=== PATIENT | female | born 1980 | race Caucasian/White ===

== ENCOUNTER 2018-01-29 09:19 | Emergency (ER) | payer OTHER ==
[2018-01-29 09:30] VITALS: BP 119/69
--- NOTE | 2018-01-29 09:39 | EDPHY ---
H & P Time Seen by Provider: 01/29/18 09:35 HPI/ROS: CHIEF COMPLAINT: Left middle digit injury HISTORY OF PRESENT ILLNESS: 37-year-old [id number] female states that 2 days ago when she was playing rugby wound her left middle digit was caught in another player's jersey when she was tackling and felt immediate pain to the PIP joint as noted deformity. Pain with range of motion and palpation. Positive ecchymosis. PRIMARY CARE PROVIDER: REVIEW OF SYSTEMS: A ten point review of systems was performed and is negative with the exception of the items mentioned in the HPI PHYSICAL EXAM (Prior to examination, patient consented to physical exam, hands were washed and my usual and customary physical exam procedures followed) 1) GENERAL: Well-developed, well-nourished, alert and oriented. Appears to be in no acute distress. 2) HEAD: Normocephalic 3) HEENT: Pupils equal, round, reactive to light bilaterally. 4) LUNGS: Breathing comfortably. 5) MUSCULOSKELETAL: Ecchymosis, soft tissue swelling tenderness to the left middle digit proximal phalanx and PIP joint. There is an ulnar deviation at the PIP joint. Soft compartments. Normal coloration. 6) SKIN: Intact. 7) VASCULAR: pulses and cap refill present are brisk 8) NEUROLOGIC: Radial, ulnar, median nerve function intact with no deficits appreciated on exam DIFFERENTIAL DIAGNOSIS: in no particular order including but not limited to fracture, sprain, compartment syndrome Smoking Status: Never smoked Constitutional: Initial Vital Signs Temperature (C) 37.1 C 01/29/18 09:27 Heart Rate 69 01/29/18 09:27 Respiratory Rate 16 01/29/18 09:27 Blood Pressure 119/69 01/29/18 09:27 O2 Sat (%) 97 01/29/18 09:27 O2 Delivery Mode Room Air Allergies/Adverse Reactions: No Known Allergies Allergy (Unverified 01/29/18 09:27) Home Medications: Medication Instructions Recorded NK [No Known Home Meds] 01/29/18 MDM/Departure - MDM Imaging Results: Imaging Impressions Hand X-Ray 01/29/18 09:36 Impression: Nondisplaced fracture lines coursing through the diaphyseal portions of the middle finger proximal phalanx. Images reviewed myself Procedures: Procedure: Splint A sunday tape splint of the 2nd 3rd 4th digits and aluminum foam of the 3rd digit splint was applied by ER computer service technician. After application of the splint I returned and re-examined the patient. The splint was adequately immobilizing the joint and distal to the splint the patient's circulation and sensation were intact. Patient shows no signs of compartment syndrome. Was given orthopedic precautions. ED Course/Re-evaluation: Reviewed the imaging results with the patient. She will be splinted, recommend hand surgery follow-up in given this referral information. Usual and customary orthopedic precautions instructions provided. I saw this patient independently based on established practice protocols. Care of patient under supervision of secondary supervising physician Dr Kye Chaidez - Depart Disposition: Home, Routine, Self-Care Clinical Impression: Fracture of phalanx of left middle finger Qualifiers: Encounter type: initial encounter Fracture type: closed Phalanx: proximal Fracture alignment: nondisplaced Qualified Code(s): S62.643A - Nondisplaced fracture of proximal phalanx of left middle finger, initial encounter for closed fracture Condition: Good Instructions: Finger Fracture (ED) Additional Instructions: Return to the ER immediately if you experience discoloration, have worsening pain, numbness, tingling, or any other symptoms that concern you. If you received x-rays in the emergency department today, be advised, that ligamentous , tendon, muscular, and other non-bony injury cannot be fully ruled out. Try to keep your affected extremity elevated above the level of your chest, and keep cold packs on the affected area, for the next 48 hours. Referrals: Katerin Siddiqui MD [Medical Doctor] - 2-3 days, call for appt. (Dr. Katerin Siddiqui is a hand surgeon)
== END 2018-01-29 10:18 | disposition home or self-care (01) ==
DX: S62.643A Nondisplaced fracture of proximal phalanx of left middle finger, initial encounter for closed fracture (principal); W03.XXXA Other fall on same level due to collision with another person, initial encounter; Y93.63 Activity, rugby; Y99.8 Other external cause status; Y92.328 Other athletic field as the place of occurrence of the external cause
CPT/HCPCS: L3925